=== PATIENT | female | born 2005 | race Caucasian/White ===

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

== ENCOUNTER 2024-05-29 10:59 | Emergency (ER) | payer BC, SELFPAY ==
[2024-05-29 11:08] VITALS: BP 112/72; PULSE 60; RESP 20; TEMP 36.9; O2SAT 100
--- NOTE | 2024-05-29 11:11 | ED.EAR ---
HPI - Ear Problem General Chief complaint: Ear Stated complaint: Left Ear Pain Time Seen by Provider: 05/29/24 11:12 Source: patient, RN notes reviewed and old records reviewed Mode of arrival: ambulatory Limitations: no limitations History of Present Illness HPI Narrative: 19-year-old [facility] to [facility] for complaint of left ear pain with acute onset this morning. Patient describes pain as intermittent and stabbing. Patient also endorsing runny nose. Patient denies cough, sore throat, shortness of breath, allergies. Patient reports history of chronic ear infections. Patient reports that last antibiotic treatment was in early April for wisdom teeth removal. patient able to tolerate fluids by mouth. Respirations even and nonlabored. Patient able to speak in full sentences without difficulty. Patient in no acute distress. Related Data Allergies Allergy/AdvReac Type Severity Reaction Status Date / Time No Known Allergies Allergy Verified 11/03/21 20:48 Review of Systems Review of Systems: All systems reviewed & are unremarkable except as noted in HPI and below Constitutional: Constitutional: Reports no additional constitutional complaints Eyes: Eyes: Reports no additional eye complaints ENT: Reports system reviewed and no additional complaints, except as documented Cardiovascular: Cardiovascular: Reports no additional cardiovascular complaints, Denies chest pain and Denies dyspnea Respiratory: Respiratory: Reports no additional respiratory complaints, Denies cough and Denies dyspnea Musculoskeletal: Musculoskeletal: Reports no additional musculoskeletal complaints Neurologic: Reports system reviewed and no additional complaints, except as documented Psychiatric: Psychiatric: Reports no additional psychiatric complaints PMFSH Past Medical History Medical History Dizziness Gastrointestinal complaints Had numerous work-ups without diagnosis Surgical History Surgical History H/O foot surgery Left foot tarsal tunnel History of endoscopy Family History Family History Grandparent Diabetes mellitus Hypertension Family history of cardiovascular disease Cerebrovascular accident Social History Social History Smoking status: Never smoker Tobacco type: cigarettes Second hand tobacco smoke exposure: No Alcohol intake: never Substance use: never Living arrangements: with family Occupation/Education: student Gender identity (if verbalized by the patient): Female Comments At the time of my signature, I reviewed and agree with the nursing past medical, surgical, social, and family history. There is no relevant family history pertinent to the patient complaint. Exam Const: General: cooperative, healthy appearing, comfortable, no acute distress, alert and well nourished Nutritional Appearance: well nourished Orientation/consciousness: patient oriented x3 Limitations: no limitations Other: HENMT: Head: normal to inspection Ears: external ears normal, Abnormal EAC present edema on the left, external ear abnormal and TM abnormal bulging on the left, dull on the left, erythematous bilateral and with fluid behind the TM Face/Nose/Sinus: Normal external nose present, Normal nares present, normal facial exam, No erythema and No edema Face and sinus: normal facial exam, no erythema and no edema Mouth: Yes Normal oral and palatal mucosa present Throat: posterior oropharynx abnormal erythema Eyes: General: appearance normal, both eyes and all related structures Neck: Neck: normal visual inspection, full ROM and no meningeal signs Lymphatic: no lymphadenopathy noted and no lymphedema noted Chest: Chest palpation & inspection: normal inspection of
== END 2024-05-29 11:36 | disposition home or self-care (01) ==
PROVIDERS: Emergency Provider Nurse Practitioner Family
DX: H66.93 Otitis media, unspecified, bilateral (principal)
CPT/HCPCS: 99213; G0463

== ENCOUNTER 2024-06-22 09:41 | Emergency (ER) | payer BC, SELFPAY ==
--- NOTE | 2024-06-22 10:23 | ED.EYEPROB ---
HPI - Eye Problem General Stated complaint: Ear Pain Time Seen by Provider: 06/22/24 10:23 Source: patient, RN notes reviewed and old records reviewed Mode of arrival: ambulatory Limitations: no limitations History of Present Illness HPI Narrative: 19 year old female who presents to [facility] care with complaints of ear pain bilaterally Related Data Allergies Allergy/AdvReac Type Severity Reaction Status Date / Time No Known Allergies Allergy Verified 11/03/21 20:48 Review of Systems Review of Systems: CONSTITUTIONAL: Denies malaise, chills, sweats, or fever. EYES: Denies visual changes, redness, or discharge. ENT: Reports rhinorrhea, congestion, sinus pain, otalgia and sore throat. CARDIOVASCULAR: Denies chest pain, palpitations, or edema. RESPIRATORY: Reports cough.? Denies dyspnea. GASTROINTESTINAL: Denies abdominal pain, nausea, vomiting, diarrhea SKIN: Denies rash or itching. MUSCULOSKELETAL: Denies myalgia. NEUROLOGIC: Denies headache. All systems reviewed & are unremarkable except as noted in HPI and below PMFSH Past Medical History Medical History Dizziness Gastrointestinal complaints Had numerous work-ups without diagnosis Surgical History Surgical History H/O foot surgery Left foot tarsal tunnel History of endoscopy Family History Family History Grandparent Diabetes mellitus Hypertension Family history of cardiovascular disease Cerebrovascular accident Social History Social History Smoking status: Never smoker Tobacco type: cigarettes Second hand tobacco smoke exposure: No Alcohol intake: never Substance use: never Living arrangements: with family Occupation/Education: student Gender identity (if verbalized by the patient): Female Comments At time of signature, agree with nursing past medical, surgical, social and family history. There is no relevant family history pertinent to the presenting complaint Exam Narrative: GENERAL: Well-appearing, well-nourished, and in no acute distress. HEAD: Normocephalic EYES: PERRLA, conjunctivae clear ENT: Nares clear, turbinates edematous and erythematous, clear discharge. Mucous membranes moist. TM pearly pereira with dull light reflex bilaterally; no tragal tenderness. Oropharynx erythematous without lesions. Tonsils not enlarged and without exudate, no drooling, no hoarseness, no trismus, uvula midline. NECK: Supple. No lymphadenopathy CHEST: Clear to auscultation, breath sounds equal. No wheezing, rhonchi, rales, or stridor. No respiratory distress, speaks in full sentences. HEART: Regular rate and rhythm. No murmur heard. SKIN: Warm, dry, no rash. NEURO: Alert and oriented x3. PSYCH: Normal mood and affect Course Course Emergency Course: Patient is aware of diagnosis, understands and agrees to treatment plan.? Anticipatory guidance given.? Patient agrees to follow-up as directed and is aware of reasons to seek care at the emergency department. Portions of this record may have been created with voice recognition software Level of Care: Express Care Visit Vital Signs Vital signs: Reviewed MDM - Eye Problem Medical Records Attestation: I reviewed the patient's medical records. Lab Data Attestation: I reviewed the patient's lab results. Critical Care Time Critical Care Time Critical Care Time: No Discharge Plan Discharge Patient Disposition: Home, Self-Care Condition: Stable Instructions: Antibiotic Form Prescriptions: No Action amoxicillin 875 mg tablet 875 mg PO Q12H Qty: 20 0RF Follow-up/Referrals: UNKNOWN,DOCTOR [Primary Care Provider] - Quality Abraham Coma Scale Eyes: Open Verbal: Oriented and Alert Motor: F
--- NOTE | 2024-06-22 10:36 | ED.URI ---
HPI - URI/Sore Throat General Stated Complaint: Ear Pain Time Seen by Provider: 06/22/24 10:18 Source: patient, RN notes reviewed and old records reviewed Mode of arrival: ambulatory Limitations: no limitations History of Present Illness HPI Narrative: 19 year old female who presents to [facility] care with complaints of ear pain for the past 3 days with no known fevers. Patient was treated with Amoxicillin on 05/29/2024 and patient reports that her symptoms did resolve till she started with bilateral ear pain 3 days ago. Patient reports that she is suppose to fly to [facility] tomorrow and is concerned with her ears. Patient reports that she has not taken any OTC medications for her symptoms and denies any known fevers, chills or any body aches.. MD elicited complaint: other (ear pain) Pertinent past history: other (recent ear infection) Onset (ago): day(s) (3) Consistency: constant Pain scale (0-10): 3 Description of mucous: clear Able to tolerate fluids by mouth: Yes Treatments prior to arrival: none and antibiotics (previous antibiotic on 05/29/2024) Related Data Allergies Allergy/AdvReac Type Severity Reaction Status Date / Time No Known Allergies Allergy Verified 11/03/21 20:48 Review of Systems Review of Systems: CONSTITUTIONAL: Denies malaise, chills, sweats, or fever. EYES: Denies visual changes, redness, or discharge. ENT: Reports rhinorrhea, congestion, no sinus pain,bilateral otalgia and no sore throat. CARDIOVASCULAR: Denies chest pain, palpitations, or edema. RESPIRATORY: Reports no cough.? Denies dyspnea. GASTROINTESTINAL: Denies abdominal pain, nausea, vomiting, diarrhea SKIN: Denies rash or itching. MUSCULOSKELETAL: Denies myalgia. NEUROLOGIC: Denies headache. All systems reviewed & are unremarkable except as noted in HPI and below PMFSH Past Medical History Medical History Dizziness Ear infection Gastrointestinal complaints Had numerous work-ups without diagnosis Surgical History Surgical History H/O foot surgery Left foot tarsal tunnel History of endoscopy Family History Family History Grandparent Diabetes mellitus Hypertension Family history of cardiovascular disease Cerebrovascular accident Social History Social History (Updated 06/22/24 @ 11:42 by Yue Torres NP) Smoking status: Never smoker Second hand tobacco smoke exposure: No Alcohol use details: social rare Substance use: never Living arrangements: with family Occupation/Education: student Gender identity (if verbalized by the patient): Female Comments At time of signature, agree with nursing past medical, surgical, social and family history. There is no relevant family history pertinent to the presenting complaint Exam Narrative: GENERAL: Well-appearing, well-nourished, and in no acute distress. HEAD: Normocephalic EYES: PERRLA, conjunctivae clear ENT: Nares clear, turbinates edematous and erythematous, clear discharge. Mucous membranes moist. Left TM red, Right TM pearly pereira with dull light reflex bilaterally; no tragal tenderness. Oropharynx erythematous without lesions. Tonsils not enlarged and without exudate, no drooling, no hoarseness, no trismus, uvula midline. NECK: Supple. No lymphadenopathy CHEST: Clear to auscultation, breath sounds equal. No wheezing, rhonchi, rales, or stridor. No respiratory distress, speaks in full sentences. SAO2 100% on room air HEART: Regular rate and rhythm. No murmur heard. SKIN: Warm, dry, no rash. NEURO: Alert and oriented x3. PSYCH: Normal mood and affect Course Course Emergency Course: Patient is aware of diagnosis, understands and agrees to treatment plan.? Anticipatory guidance given.? Patient agrees to follow-up as directed and is aware of reasons to seek c
== END 2024-06-22 10:41 | disposition home or self-care (01) ==
PROVIDERS: Emergency Provider Registered Nurse
DX: H65.05 Acute serous otitis media, recurrent, left ear (principal)
CPT/HCPCS: 99213; G0463

== ENCOUNTER 2024-12-29 13:17 | Emergency (ER) | payer OTHER, SELFPAY ==
[2024-12-29 13:29] VITALS: BP 121/81; PULSE 123; RESP 16; TEMP 37.9; O2SAT 100
[2024-12-29 13:49] LABS: EDCOVIDSCREEN Negative (Negative); EDINFLUASCREEN Negative (Negative); EDINFLUBSCREEN Negative (Negative)
--- NOTE | 2024-12-29 13:50 | ED.URI ---
HPI - URI/Sore Throat General Chief Complaint: Upper Respiratory Infection Stated Complaint: COUGH/BACK PAIN/HANDS TINGLING Time Seen by Provider: 12/29/24 13:20 Source: patient Mode of arrival: ambulatory Limitations: no limitations History of Present Illness HPI Narrative: Patient is a 19-year-old female who presents with low back pain that started at 6:00 a.m. last night. Denies any injury, new workout regimen or activity. Denies any burning with urination, blood in urine, frequency urgency. Patient also reports sharp shooting pain to mid back and right chest. Patient states she has history of cough for 2 months it has popped rib out of place in the past that required care mgr. 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 States she has had numbness and tingling to left hand and now just fingers 3 through 5. Denies any history of carpal tunnel. Related Data Home Medications ?Medication ?Instructions ?Recorded ?Confirmed ?Last Taken ?Type No Home Medications 12/29/24 12/29/24 Unknown History Allergies Allergy/AdvReac Type Severity Reaction Status Date / Time No Known Allergies Allergy Verified 12/29/24 13:25 Review of Systems Review of Systems: All systems reviewed & are unremarkable except as noted in HPI and below Constitutional: Constitutional: Denies chills, Denies fatigue, Reports fever(s), Denies headache(s), Denies malaise and Denies weakness Eyes: Eyes: Denies blurry vision, Denies itchy eyes and Denies loss of vision ENT: Denies otalgia, Denies headache(s), Denies nasal congestion, Denies sinus pain and Denies sore throat Cardiovascular: Cardiovascular: Denies chest pain, Denies irregular heart rhythm and Denies dyspnea Respiratory: Respiratory: Reports cough and Denies dyspnea Gastrointestinal: Gastrointestinal: Denies abdominal pain, Denies diarrhea, Denies nausea and Denies vomiting Musculoskeletal: Musculoskeletal: Reports back pain, Denies myalgias and Denies arthralgias Integumentary/Breasts: Skin/Breast: Denies pruritus and Denies rash Neurologic: Denies headache(s), Denies loss of vision and Denies weakness Psychiatric: Psychiatric: Reports no additional psychiatric complaints Endocrine: Endocrine: Denies fatigue Allergic/Immunologic: Allergic/Immunologic: Denies itchy eyes PMFSH Past Medical History Medical History Ear infection Dizziness Gastrointestinal complaints Had numerous work-ups without diagnosis Surgical History Surgical History History of endoscopy H/O foot surgery Left foot tarsal tunnel Family History Family History Grandparent Diabetes mellitus Hypertension Family history of cardiovascular disease Cerebrovascular accident Social History Social History Smoking status: Never smoker Second hand tobacco smoke exposure: No Alcohol use details: social rare Substance use: never Living arrangements: with family Occupation/Education: student Gender identity (if verbalized by the patient): Female Comments At time of signature, agree with nursing past medical, surgical, social and family history. There is no relevant family history pertinent to the presenting complaint. Exam Const: General: cooperative, healthy appearing, comfortable, no acute distress and well nourished Nutritional Appearance: well nourished Orientation/consciousness: patient oriented x3 Limitations: no limitations HENMT: Head: normal to inspection, normocephalic and atraumatic Ears: hearing grossly normal bilaterally, external ears normal, TM's normal bilaterally, EAC's normal and no periauricular adenopathy Face/Nose/Sinus: Normal external nose present, Abnormal mucous membranes and turbinates present erythematous bilateral and diffuse, normal facial exam, sinuses nontender and face symmetric Face and sinus: normal facial exam, sinuses nontender and face symmetric Mouth: Yes Normal oral and palatal mucosa present, Yes lip normal, Yes tongue normal, Yes Normal salivary glands and ducts present, Yes oropharynx normal and Yes moist mucous membranes Teeth and gingiva: dentition normal Throat: posterior oropharynx normal, tonsils normal and uvula midline Eyes: General: appearance normal, both eyes and all related structures Alignment and Position: alignment normal and position normal Periorbital: periorbital findings normal Eyelids: eyelids normal Pupils: Equal, round and reactive pupils present Neck: Neck: normal visual inspection, full ROM, no lymphadenopathy and supple Chest: Chest palpation & inspection: normal inspection of the chest and normal palpation of entire chest wall Resp: Effort & Inspection: normal respiratory effort and able to speak in complete sentences Auscultation: clear to auscultation bilaterally, no crackles, no rales, no rhonchi and no wheezes Cardio: Rate: tachycardic Rhythm: regular rhythm Heart sounds: S1 normal heart sound present and S2 normal heart sound present GI: Inspection: normal to inspection Skin: General skin exam: normal color and no rashes or lesions noted Neuro: General: patient oriented x3 and moves all extremities Cranial nerves: Yes Equal, round and reactive pupils present Speech: normal speech Gait exam (Neuro): Normal gait present Extrem: General: normal to inspection, full ROM and no edema Psych: Appearance: grossly normal and well kempt Mental Status: mental status grossly normal Speech and movement: Normal speech and movement present Affect: normal affect Attitude: cooperative Thought process: Normal thought process present Course Course Emergency Course: Patient being transferred to [facility] for further workup and evaluation. Concern for dehydration due to high amount of ketones in urine. Patient needs further lab work to rule out infection or electrolyte imbalances. Portions of this record may have been created with voice recognition software Level of Care: Express Care Visit Vital Signs Vital signs: Vital Signs Temperature 37.9 C H 12/29/24 13:29 Pulse Rate 123 H 12/29/24 13:29 Respiratory Rate 16 12/29/24 13:29 Blood Pressure 121/81 12/29/24 13:29 Pulse Oximetry 100 12/29/24 13:29 Temperature 37.9 C H 12/29/24 13:29 Pulse Rate 123 H 12/29/24 13:29 Respiratory Rate 16 12/29/24 13:29 Blood Pressure 121/81 12/29/24 13:29 Pulse Oximetry 100 12/29/24 13:29 Reviewed Transfer Transfered to: [facility] Transportation: Other ( Private auto) Transfer rationale: Patient being transferred to [facility] for further workup and evaluation. Concern for dehydration due to high amount of ketones in urine. Patient needs further lab work to rule out infection or electrolyte imbalances. Accepting physician: Marisol HIDALGO MDM - URI/Sore Throat MDM Narrative Medical decision making narrative: Patient being transferred to [facility] for further workup and evaluation. Concern for dehydration due to high amount of ketones in urine. Patient needs further lab work to rule out infection or electrolyte imbalances. Patient has history of celiac disease, states not currently active. Differential diagnosis considered: Bronchitis, Larios virus, strep pharyngitis, allergic rhinitis, upper respiratory tract infection, sinusitis, rhinosinusitis, nasopharyngitis. viral pharyngitis, otitis media, otitis externa, otitis effusion, foreign body, cerumen impaction, viral syndrome, and influenza.? Exam findings show no acute concerns or changes Medical Records Attestation: I reviewed the patient's medical records. Lab Data Attestation: I reviewed the patient's lab results. Labs: Lab Results 12/29/24 12/29/24 12/29/24 Range/Units 13:47 14:18 14:32 POC Urine Color Dark POC Urine Clarity Clear POC Urine pH 5.5 POC Ur Specif [place] 1.030 POC Urine Protein Trace (Negative) POC Ur Glucose (UA) Negative (Negative) POC Urine Ketones 4+ (Negative) POC Urine Blood Negative (Negative) POC Urine Nitrite Negative (Negative) POC Urine Bilirubin 1+ (Negative) POC Urine Urobilinogen 0.2 POC U Leukocyte Esteras Negative (Negative) POC Urine HCG, Qual Negative (Negative) POC Influenza A Ag Negative (Negative) POC Influenza B Ag Negative (Negative) POC SARS CoV-2 Ag Negative (Negative) Imaging Data Radiologist's impression: EXAMINATION: XR chest 2V DATE: 12/29/2024 14:10 INDICATION: Cough. TECHNIQUE: Frontal and lateral views of the chest were obtained. COMPARISON: CT abdomen and pelvis 05/30/2020 FINDINGS: There is no pneumonia, pleural effusion, or pneumothorax. The heart size is normal. IMPRESSION: 1. No acute cardiopulmonary disease. Discharge Plan Discharge Clinical Impression: Low back pain, Urine ketones, Tachycardia, Numbness and tingling in left hand Patient Disposition: Acute Care Hospital Condition: Stable Patient Language: Icelandic Prescriptions: No Action No Home Medications Follow-up/Referrals: PHYSICIAN,MANAGER STRATEGIC DEVELOPMENT [Primary Care Provider] - Time of Disposition: 14:48
[2024-12-29 14:21] LABS: EDUAAPPEAR Clear; EDUABILI 1+ (Negative); EDUABLOOD Negative (Negative); EDUACOLOR1 Dark; EDUAGLUCOSE Negative (Negative); EDUAKETONE 4+ (Negative); EDUALEUKO Negative (Negative); EDUANITRATE Negative (Negative); EDUAPH 5.5; EDUAPROTEIN Trace (Negative); EDUAUROBILI 0.2
[2024-12-29 14:34] LABS: BEDSIDEPREGUCG Negative (Negative)
== END 2024-12-29 14:46 | disposition short-term general hospital (02) ==
PROVIDERS: Emergency Provider Nurse Practitioner Family
DX: M54.50 Low back pain, unspecified (principal); R82.4 Acetonuria; R00.0 Tachycardia, unspecified; R20.0 Anesthesia of skin; R20.2 Paresthesia of skin; Z20.822 Contact with and (suspected) exposure to COVID-19
CPT/HCPCS: 71046; 81003; 81025; 87426; 87804; 99213; G0463

== ENCOUNTER 2024-12-29 15:09 | Emergency (ER) | payer OTHER, SELFPAY ==
[2024-12-29 15:15] VITALS: BP 123/80; PULSE 106; RESP 16; TEMP 36.6; O2SAT 100
[2024-12-29 16:45] LABS: Basophils Percent Auto 0.2 % (0.2-1.2); Hematocrit 39.2 % (37.0-47.0); Hemoglobin 13.5 g/dL (12.0-15.0); Immature Granulocyte Absolute 0.01 K/mm3 (0.00-0.031); Immature Granulocyte Percent A 0.2 % (0-0.5); Lymphocytes Absolute Auto 0.45 K/mm3 (0.9-3.2); Lymphocytes Percent Auto 10.7 % (18.3-44.2); Mean Corpuscular HGB Conc 34.4 g/dl (32-36); Mean Corpuscular Hemoglobin 31.4 pg (26-34); Mean Corpuscular Volume 91.2 fl (80-100); Mean Platelet Volume 10.3 fl (7.4-10.4); Monocytes Absolute Auto 0.6 K/mm3 (0.1-0.6); Monocytes Percent Auto 13.4 % (2.6-8.5); Neutrophils Absolute Auto 3.2 K/mm3 (1.3-6.7); Neutrophils Percent Auto 75.5 % (45.5-73.1); Platelet Count Result 177 k/mm3 (150-375); Red Cell Distribution Width 11.9 % (11.5-14.5); White Blood Count 4.2 K/mm3 (4.5-10.0)
[2024-12-29 17:13] LABS: Alanine Aminotransferase 18 U/L (6-35); Albumin Level 4.8 g/dL (3.5-5.1); Alkaline Phosphatase 59 U/L (38-126); Anion Gap 20 mmol/L (4-12); Aspartate Amino Transferase 22 U/L (14-36); Bilirubin,Total 0.6 mg/dL (0.2-1.3); Blood Urea Nitrogen 14 mg/dL (7-17); Calcium 9.2 mg/dL (8.4-10.2); Carbon Dioxide 15 mmol/L (22-30); Chloride 102 mmol/L (98-107); Estimated CRCL calculation 75 ml/min; Estimated Glomerular Filt Rate > 60; Glucose 50 mg/dL (65-110); Potassium 4.3 mmol/L (3.4-5.0); Sodium 137 mmol/L (137-145)
--- NOTE | 2024-12-29 17:13 | PC.NURSE ---
patient provided a sandwhich and juice due to low blood sugar
[2024-12-29 17:28] LABS: BEDSIDEPREGUCG Negative (Negative)
[2024-12-29 17:35] LABS: Add Urine Microscopic? YES; Appearance Urine Clear (Clear); Bacteria Urine None Seen /hpf; Bilirubin Urine Negative (Negative); Blood Urine Negative (Negative); Color Urine Yellow (Yellow); Glucose Urine UA Negative (Negative); Ketones Urine 4+ mg/dL (Negative); Leukocyte Esterase Ur Negative LEU/UL (Negative); Nitrate Urine Negative (Negative); Non Pathogenic Casts 0-2; Protein Urine Trace mg/dL (Negative); RBC Urine 0-2 /hpf (0-2); Specific Grav Ur 1.026 (1.001-1.035); Squamous Epithelial Cell Urine None Seen /hpf (Few); WBC Urine 0-5 /hpf (0-3); pH Urine 5.5 (5.0-9.0)
[2024-12-29 18:22] LABS: Creatine Kinase 53 U/L (30-135)
--- NOTE | 2024-12-29 18:23 | ED.GENADULT ---
HPI - General Adult General Chief complaint: Urogenital-Female Stated complaint: low back pain Time Seen by Provider: 12/29/24 17:04 History of Present Illness HPI narrative: Patient is a 19-year-old female who presents with low back pain that started last night. Denies any injury. Pt endorses she works out about an hour every day, but this is not a new workout regimen or activity. Denies any burning with urination, blood in urine, frequency urgency. Patient also endorses sharp shooting pain to mid back and right chest. Patient states she has history of cough for 2 months. She endorses a history of UTIs, skin staph infection, gastric issues, otitis media. Patient endorses increased fatigue over the past 24 hours and increased thirst. Related Data Home Medications ?Medication ?Instructions ?Recorded ?Confirmed ?Last Taken ?Type No Home Medications 12/29/24 12/29/24 Unknown History Allergies Allergy/AdvReac Type Severity Reaction Status Date / Time No Known Allergies Allergy Verified 12/29/24 15:10 Review of Systems Review of Systems: All systems reviewed & are unremarkable except as noted in HPI and below PMFSH Past Medical History Medical History Ear infection Dizziness Gastrointestinal complaints Had numerous work-ups without diagnosis Surgical History Surgical History History of endoscopy H/O foot surgery Left foot tarsal tunnel Family History Family History Grandparent Diabetes mellitus Hypertension Family history of cardiovascular disease Cerebrovascular accident Social History Social History Smoking status: Never smoker Second hand tobacco smoke exposure: No Alcohol use details: social rare Substance use: never Living arrangements: with family Occupation/Education: student Gender identity (if verbalized by the patient): Female Exam Narrative: GENERAL: Well appearing, well-nourished, non-toxic, in no acute distress. HEAD: Normocephalic, atraumatic. NECK: Supple. No adenopathy, no masses. RESPIRATORY: Airway patent, respirations nonlabored. Clear to auscultation bilaterally, no rales, rhonchi, wheezing. CARDIOVASCULAR: Regular rate and rhythm without murmurs, rubs, or gallops. Peripheral pulses 2+ and equal bilaterally. ABDOMINAL: Soft, nontender, nondistended, no hepatosplenomegaly. Normoactive BS. MUSCULOSKELETAL: Moves all extremities. Strength/ROM intact without gross deformities. SKIN: Warm, dry, normal color. No rashes. NEURO: A&O X3. Speech clear. Cranial nerves II-XII grossly intact. Steady gait. No ataxic movements. PSYCHIATRIC: Appropriate mood and affect. Normal interaction. Course Vital Signs Vital signs: Vital Signs Temperature 36.6 C 12/29/24 15:15 Pulse Rate 106 H 12/29/24 15:15 Respiratory Rate 16 12/29/24 15:15 Blood Pressure 123/80 12/29/24 15:15 Pulse Oximetry 100 12/29/24 15:15 Oxygen Delivery Room Air 12/29/24 15:15 Temperature 36.6 C 12/29/24 15:15 Pulse Rate 106 H 12/29/24 15:15 Respiratory Rate 16 12/29/24 15:15 Blood Pressure 123/80 12/29/24 15:15 Pulse Oximetry 100 12/29/24 15:15 Oxygen Delivery Room Air 12/29/24 15:15 Medical Decision Making MDM Narrative Medical decision making narrative: Patient is a 19-year-old female who presents with low back pain that started last night. Denies any injury. Pt endorses she works out about an hour every day, but this is not a new workout regimen or activity. Denies any burning with urination, blood in urine, frequency urgency. Patient also endorses sharp shooting pain to mid back and right chest. Patient states she has history of cough for 2 months. She endorses a history of UTIs, skin staph infection, gastric issues, otitis media. Patient endorses increased fatigue over the past 24 hours and increased thirst. Labs Ordered: CBC, CMP, CK (d/t pt's workout regime), TSH with reflex, hemoglobin A1c (d/t low blood sugar), COVID/flu/RSV Imaging Ordered: None necessary Medications Ordered: 2 L normal saline bolus, Toradol 15 mg IV Diagnosis: Hyperthyroidism, influenza A positive, dehydration *pt reports she had not eaten all day upon initial glucose blood draw, after eating her blood sugar was within normal range Patient Education/Shared MDM: Results shared with patient. She endorses improvement following medication administration. Patient strongly advised to maintain hydration status upon discharge and follow-up with a PCP as soon as possible. She will be discharged home with no new prescriptions. Strict return precautions provided. Patient verbalized understanding is in agreement with plan. Vital signs stable at time of discharge. All questions answered. Differential Diagnosis Differential Diagnosis: Hyperthyroidism, rhabdomyolysis, dehydration, hypoglycemia, Vital Signs Vital Signs: Vital Signs Temperature 36.6 C 12/29/24 15:15 Pulse Rate 106 H 12/29/24 15:15 Respiratory Rate 16 12/29/24 15:15 Blood Pressure 123/80 12/29/24 15:15 Pulse Oximetry 100 12/29/24 15:15 Oxygen Delivery Room Air 12/29/24 15:15 Temperature 36.6 C 12/29/24 15:15 Pulse Rate 106 H 12/29/24 15:15 Respiratory Rate 16 12/29/24 15:15 Blood Pressure 123/80 12/29/24 15:15 Pulse Oximetry 100 12/29/24 15:15 Oxygen Delivery Room Air 12/29/24 15:15 Lab Data Lab results reviewed: Yes I reviewed the patient's lab results. 12/29/24 16:40 12/29/24 16:40 Labs: Lab Results 12/29/24 12/29/24 12/29/24 Range/Units 16:40 17:20 17:24 WBC 4.2 L (4.5-10.0) K/mm3 RBC 4.30 (4.2-5.4) M/mm3 Hgb 13.5 (12.0-15.0) g/dL Hct 39.2 (37.0-47.0) % MCV 91.2 (80-100) fl MCH 31.4 (26-34) pg MCHC 34.4 (32-36) g/dl RDW 11.9 (11.5-14.5) % Plt Count 177 (150-375) k/mm3 MPV 10.3 (7.4-10.4) fl Immature Gran % (Auto) 0.2 (0-0.5) % Neut % (Auto) 75.5 H (45.5-73.1) % Lymph % (Auto) 10.7 L (18.3-44.2) % [place] % (Auto) 13.4 H (2.6-8.5) % Eos % (Auto) 0.0 (0-4.4) % Baso % (Auto) 0.2 (0.2-1.2) % Lymph # (Auto) 0.45 L (0.9-3.2) K/mm3 [place] # (Auto) 0.6 (0.1-0.6) K/mm3 Eos # (Auto) 0.0 (0-0.3) K/mm3 Baso # (Auto) 0.0 (0.0-0.1) K/mm3 Abs Immat Gran (auto) 0.01 (0.00-0.031) K/mm3 Absolute Neuts (auto) 3.2 (1.3-6.7) K/mm3 Absolute Nucleated RBC 0.000 (0.0-0.012) K/mm3 Nucleated RBC % 0.0 (0.0-0.2) % Sodium 137 (137-145) mmol/L Potassium 4.3 (3.4-5.0) mmol/L Chloride 102 (98-107) mmol/L Carbon Dioxide 15 L (22-30) mmol/L Anion Gap 20 H (4-12) mmol/L BUN 14 (7-17) mg/dL Creatinine 0.74 (0.7-1.0) mg/dL Estim Creat Clear Calc 75 ml/min Estimated GFR > 60 (59 - ) Glucose 50 L* (65-110) mg/dL POC Capillary Glucose (65-105) mg/dl Hemoglobin A1c 4.5 (<5.7) % Calcium 9.2 (8.4-10.2) mg/dL Total Bilirubin 0.6 (0.2-1.3) mg/dL AST 22 (14-36) U/L ALT 18 (6-35) U/L Alkaline Phosphatase 59 (38-126) U/L Total Creatine Kinase 53 (30-135) U/L Total Protein 8.0 (6.3-8.2) g/dL Albumin 4.8 (3.5-5.1) g/dL TSH (Reflex) 0.288 L (0.465-4.68) uIU/mL Free T4 1.16 (0.78-2.19) ng/dL Total T3 0.92 L (0.97-1.69) NG/ML Urine Color Yellow (Yellow) Urine Appearance Clear (Clear) Urine pH 5.5 (5.0-9.0) Ur Specific [place] 1.026 (1.001-1.035) Urine Protein Trace (Negative) mg/dL Urine Glucose (UA) Negative (Negative) mg/dL Urine Ketones 4+ H (Negative) mg/dL Ur Blood (Man) Negative (Negative) Urine Nitrate Negative (Negative) Urine Bilirubin Negative (Negative) Urine Urobilinogen 1.0 (<2.0) mg/dL Leukocyte Esterase Rfl Negative (Negative) TAMMY/UL Urine RBC 0-2 (0-2) /hpf Urine WBC 0-5 (0-3) /hpf Ur Squamous Epith Cells None seen (Few) /hpf Urine Bacteria None seen /hpf Urine Casts 0-2 POC Urine HCG, Qual Negative (Negative) Influenza A (RT-PCR) (Negative) Influenza B (RT-PCR) (Negative) RSV (RT-PCR) (Negative) SARS-CoV-2 RNA (RT-PCR) (Negative) 12/29/24 12/29/24 Range/Units 19:52 20:25 WBC (4.5-10.0) K/mm3 RBC (4.2-5.4) M/mm3 Hgb (12.0-15.0) g/dL Hct (37.0-47.0) % MCV (80-100) fl MCH (26-34) pg MCHC (32-36) g/dl RDW (11.5-14.5) % Plt Count (150-375) k/mm3 MPV (7.4-10.4) fl Immature Gran % (Auto) (0-0.5) % Neut % (Auto) (45.5-73.1) % Lymph % (Auto) (18.3-44.2) % [place] % (Auto) (2.6-8.5) % Eos % (Auto) (0-4.4) % Baso % (Auto) (0.2-1.2) % Lymph # (Auto) (0.9-3.2) K/mm3 [place] # (Auto) (0.1-0.6) K/mm3 Eos # (Auto) (0-0.3) K/mm3 Baso # (Auto) (0.0-0.1) K/mm3 Abs Immat Gran (auto) (0.00-0.031) K/mm3 Absolute Neuts (auto) (1.3-6.7) K/mm3 Absolute Nucleated RBC (0.0-0.012) K/mm3 Nucleated RBC % (0.0-0.2) % Sodium (137-145) mmol/L Potassium (3.4-5.0) mmol/L Chloride (98-107) mmol/L Carbon Dioxide (22-30) mmol/L Anion Gap (4-12) mmol/L BUN (7-17) mg/dL Creatinine (0.7-1.0) mg/dL Estim Creat Clear Calc ml/min Estimated GFR (59 - ) Glucose (65-110) mg/dL POC Capillary Glucose 84 (65-105) mg/dl Hemoglobin A1c (<5.7) % Calcium (8.4-10.2) mg/dL Total Bilirubin (0.2-1.3) mg/dL AST (14-36) U/L ALT (6-35) U/L Alkaline Phosphatase (38-126) U/L Total Creatine Kinase (30-135) U/L Total Protein (6.3-8.2) g/dL Albumin (3.5-5.1) g/dL TSH (Reflex) (0.465-4.68) uIU/mL Free T4 (0.78-2.19) ng/dL Total T3 (0.97-1.69) NG/ML Urine Color (Yellow) Urine Appearance (Clear) Urine pH (5.0-9.0) Ur Specific [place] (1.001-1.035) Urine Protein (Negative) mg/dL Urine Glucose (UA) (Negative) mg/dL Urine Ketones (Negative) mg/dL Ur Blood (Man) (Negative) Urine Nitrate (Negative) Urine Bilirubin (Negative) Urine Urobilinogen (<2.0) mg/dL Leukocyte Esterase Rfl (Negative) TAMMY/UL Urine RBC (0-2) /hpf Urine WBC (0-3) /hpf Ur Squamous Epith Cells (Few) /hpf Urine Bacteria /hpf Urine Casts POC Urine HCG, Qual (Negative) Influenza A (RT-PCR) Positive A (Negative) Influenza B (RT-PCR) Negative (Negative) RSV (RT-PCR) Negative (Negative) SARS-CoV-2 RNA (RT-PCR) Negative (Negative) Discharge Plan Discharge Clinical Impression: Counseling on health promotion and disease prevention, Hyperthyroidism, Acute dehydration, Influenza A Patient Disposition: Home, Self-Care Condition: Stable Instructions: Antibiotic Form, Dehydration (ED), Hyperthyroidism (ED), Influenza (ED) Additional Instructions: Please return to the ER with an worsening symptoms. Follow-up with primary care provider as soon as possible. Your TSH level was 0.288 today in the ER. This will require follow-up with a primary care provider. Please drink lots and lots of water, as you were dehydrated today. Patient Language: [place] Prescriptions: No Action No Home Medications Follow-up/Referrals: Sandra Whiteside MD [Physician] - (primary care) PHYSICIAN,SALES RECRUITER [Primary Care Provider] - Gil Sosa MD [Physician] - (primary care) Waleska,MELANY Robbins [Non-Staff] - (primary care) Stand Alone Forms: Work/School Release IP Time of Disposition: 21:34
[2024-12-29 18:25] LABS: Hemoglobin A1C 4.5 % (<5.7)
[2024-12-29] MEDS: SODIUM CHLORIDE 0.9% IV 1,000 ML 999 ML IV CONT ×2 (18:25→20:11)
[2024-12-29 18:56] LABS: Thyroid Stimulating Hormone Reflex 0.288 uIU/mL (0.465-4.68)
[2024-12-29 20:28] LABS: Free T4 Free Thyroxine Reflex 1.16 ng/dL (0.78-2.19)
[2024-12-29 20:28] LABS: Glucose Point of Care 84 mg/dl (65-105)
[2024-12-29 20:35] LABS: Influenza A QL RT-PCR Positive (Negative); Influenza B QL RT-PCR Negative (Negative); RSV RNA, RT-PCR Negative (Negative); SARS-CoV-2 RNA PCR Negative (Negative)
[2024-12-29 21:11] LABS: Total Triiodothyronine (T3) 0.92 NG/ML (0.97-1.69)
[2024-12-29] MEDS: KETOROLAC 15 MG/ML VIAL (*BKC) IV PUSH (21:15)
[2024-12-29 21:49] VITALS: BP 97/55; PULSE 98; RESP 18; TEMP 37.7; O2SAT 97
== END 2024-12-29 21:52 | disposition home or self-care (01) ==
PROVIDERS: Emergency Medicine; Emergency Provider Registered Nurse
DX: J10.1 Influenza due to other identified influenza virus with other respiratory manifestations (principal); E05.90 Thyrotoxicosis, unspecified without thyrotoxic crisis or storm; E86.0 Dehydration; Z20.822 Contact with and (suspected) exposure to COVID-19; Z87.440 Personal history of urinary (tract) infections
CPT/HCPCS: 36415; 80053; 81001; 81025; 82550; 82948; 83036; 84439; 84443; 84480; 85025; 87637; 96361; 96374; 99284; J1885; J7030

== ENCOUNTER 2025-04-07 18:26 | Emergency (ER) | payer OTHER, SELFPAY ==
[2025-04-07 18:45] VITALS: BP 110/84; PULSE 72; RESP 18; TEMP 36.8; O2SAT 100
--- NOTE | 2025-04-07 18:59 | ED.SKABFB ---
HPI - Skin/Abscess/Foreign Bdy General Chief complaint: Skin/Abscess/Foreign Body Stated complaint: c/o staph infection Source: patient Mode of arrival: ambulatory Limitations: no limitations History of Present Illness HPI narrative: 19 y/o female presented for c/o red bumps to the legs. First noticed one small bump last night, then woke today with several bumps. Endorses one to the left lower leg is itchy. Most bumps are near an abrasion over the left knee sustained one week ago. Pt says she used a tanning mulu yesterday. Pt reports a history of staph infection. Denies lip, tongue, or throat swelling, shortness of breath or wheezing. Denies changes to soap, detergent, lotion, or any other exposures. No one else in the house or any contacts with similar symptoms. Related Data Allergies Allergy/AdvReac Type Severity Reaction Status Date / Time No Known Allergies Allergy Verified 04/07/25 18:55 Review of Systems Review of Systems: CONSTITUTIONAL: Denies body aches, fever, chills, or sweats. EYES: Denies visual changes, redness, or discharge. ENT: Denies rhinorrhea, congestion CARDIOVASCULAR: Denies chest pain, palpitations, or edema. RESPIRATORY: Denies cough or dyspnea. GASTROINTESTINAL: Denies abdominal pain, nausea, vomiting, or diarrhea. SKIN: per HPI MUSCULOSKELETAL: Denies back pain, joint pain, or myalgia. NEUROLOGIC: Denies headache, numbness, tingling, or weakness. [facility] Past Medical History Medical History Ear infection Dizziness Gastrointestinal complaints Had numerous work-ups without diagnosis Surgical History Surgical History History of endoscopy H/O foot surgery Left foot tarsal tunnel Family History Family History Grandparent Diabetes mellitus Hypertension Family history of cardiovascular disease Cerebrovascular accident Social History Social History Smoking status: Never smoker Second hand tobacco smoke exposure: No Alcohol use details: social rare Substance use: never Living arrangements: with family Occupation/Education: student Gender identity (if verbalized by the patient): Female Comments At time of signature, I have reviewed and agree with nursing past medical, surgical, social and family history unless otherwise noted. Please see nursing chart for further information. There is no relevant family history pertinent to the presenting complaint Exam Narrative: GENERAL: Well-appearing EYES: conjunctivae clear, and EOMI. ENT: Mucous membranes moist. Oropharynx without edema, erythema or lesions. NECK: Supple. No lymphadenopathy CHEST: Clear to auscultation. HEART: Regular rate and rhythm. SKIN: Warm, dry. Left knee with 2cm abrasion, no drainage. Scattered erythematous pustules noted to left lower inner thigh and scattered to bilateral lower legs. NEURO: Alert and oriented x3. Course Course Emergency Course: Patient is aware of diagnosis, understands and agrees to treatment plan. Anticipatory guidance given. Patient agrees to follow-up as directed and is aware of reasons to seek care at the emergency department. Portions of this record may have been created with voice recognition software Level of Care: Express Care Visit Vital Signs Vital signs: Vital Signs Temperature 98.2 F 04/07/25 18:45 Pulse Rate 72 04/07/25 18:45 Respiratory Rate 18 04/07/25 18:45 Blood Pressure 110/84 04/07/25 18:45 Pulse Oximetry 100 04/07/25 18:45 Temperature 98.2 F 04/07/25 18:45 Pulse Rate 72 04/07/25 18:45 Respiratory Rate 18 04/07/25 18:45 Blood Pressure 110/84 04/07/25 18:45 Pulse Oximetry 100 04/07/25 18:45 Reviewed MDM - Skin/Abscess/Foreign Bdy MDM Narrative Medical decision making narrative: Discussed physical exam findings; shared decision making pt declined wound culture at this time. Rx sent. Advised supportive measures and signs/symptoms to go to the ER. Pt is appropriate for outpt treatment and f/u. Differential Diagnosis Differential diagnosis: Likely abscess of skin or subcutaneous tissue, viral exanthem, dermatophytosis, urticaria, herpes zoster, cellulitis, eczema, insect bites, impetigo and contact dermatitis Discharge Plan Discharge Clinical Impression: Folliculitis Patient Disposition: Home Condition: Stable Instructions: Antibiotic Form, Folliculitis (ED) Additional Instructions: Keep the skin clean and dry - cleanse with warm water and mild soap and allow to fully dry. Keep it open to air (no bandages unless draining) Avoid scented products including lotions, tanning creams, and soaps Watch for worsening symptoms including pain, redness, swelling, streaking, pus/drainage, fever. Go to the ER with any of these symptoms or concerns. Follow up with primary care provider in 1 week as needed. Patient Language: [place] Prescriptions: New prednisone 20 mg tablet 20 mg PO DAILY Qty: 4 0RF cephalexin 500 mg capsule 500 mg PO Q8H 7 Days Qty: 21 0RF Follow-up/Referrals: UNKNOWN,DOCTOR [Primary Care Provider] - Time of Disposition: 19:05
== END 2025-04-07 19:07 | disposition home or self-care (01) ==
PROVIDERS: Emergency Provider Nurse Practitioner Family
DX: L73.9 Follicular disorder, unspecified (principal)
CPT/HCPCS: 99213; G0463